=== PATIENT | male | born 1950 | race Caucasian/White ===

== ENCOUNTER 2017-10-04 16:24 | Emergency (ER) | END 2017-10-04 17:51 | disposition home or self-care (01) ==

== ENCOUNTER 2018-03-13 18:53 | Emergency (ER) | payer OTHER ==
[~2018-03-13] VITALS: Ht 170.2 cm; Wt 86.5 kg
[~2018-03-13 18:53] MED LIST: ATOR20TA38 PO; GLIP10TA14 PO; LOSA25TA12 PO; METF100010 PO; WARF5TAB PO
[2018-03-13 19:00] VITALS: Ht 170.2 cm; Wt 86.5 kg
[2018-03-13] MEDS ORDERED: CEPH-443 PO (20:22)
--- NOTE | 2018-03-13 21:01 | ERD ---
ER Documentation Chief Complaint Chief Complaint ABSCESS LEFT ELBOW HPI 67-year-old male patient with a past medical history of hypertension, diabetes, hyperlipidemia, hypertension chronic right leg DVT presents to the ED complaining of left elbow pain that started about a days ago. Patient reports that he is on his elbows, did not sustain any trauma or injuries. States that his left abscess started to drain. Denies any fever, chills, loss of sensation, loss of range of motion, nausea, vomiting. Reports that he still has good range of motion of his left elbow however it is slightly painful. ROS All systems reviewed and are negative except as per history of present illness. Medications Home Meds Active Scripts Cephalexin* (Keflex*) 500 Mg Capsule, 500 MG PO QID for 7 Days, CAP Prov:CHIN SHIN PA-C 03/13/18 Warfarin Sodium* (Coumadin*) 5 Mg Tablet, 1.5 TAB PO DAILY for 30 Days, TAB Prov:AURORA QUACH MD 10/04/17 Reported Medications Glipizide* (Glipizide*) 10 Mg Tablet, 10 MG PO AC BREAKFAST DINNER, TAB 10/04/17 Metformin Hcl* (Metformin Hcl*) 1,000 Mg Tablet, 1000 MG PO WITH BREAKFAST DINNE, #60 TAB 10/04/17 Atorvastatin Calcium* (Atorvastatin Calcium*) 20 Mg Tablet, 20 MG PO QHS, #30 TAB 10/04/17 Losartan Potassium* (Losartan Potassium*) 25 Mg Tablet, 25 MG PO DAILY, TAB 10/04/17 Allergies Allergies: Coded Allergies: No Known Allergy (Unverified , 10/04/17) PMhx/Soc History of Surgery: No Anesthesia Reaction: No Hx Neurological Disorder: No Hx Respiratory Disorders: No Hx Cardiac Disorders: No Hx Psychiatric Problems: No Hx Miscellaneous Medical Probl: Yes (DVT,DM,Dyslipidemia) Hx Alcohol Use: No Hx Substance Use: No Hx Tobacco Use: No Smoking Status: Never smoker FmHx Family History: No diabetes, No coronary disease Physical Exam Vitals Vital Signs Date Temp Pulse Resp B/P (MAP) Pulse Ox O2 O2 Flow FiO2 Time Delivery Rate 03/13/18 98.2 84 18 150/83 98 19:00 (105) Physical Exam Const: [id number], well-nourished. In no acute distress. Head: Atraumatic, normocephalic Eyes: Normal Conjunctiva without injection ENT: Normal external ear, nose and mouth. Neck: Full range of motion. No meningismus. Resp: Clear to auscultation bilaterally. No wheezing, rhonchi, rales, or crackles. No accessory muscle use. No retractions. Cardio: Regular rate and rhythm, no murmurs Skin: No petechiae or rashes Back: No midline tenderness. No CVA tenderness. Ext: No cyanosis, or edema. Cap refill less than 2 seconds. Distal pulses intact bilaterally. 2 cm superficial abscess noted of the left olecranon. Full range of motion of the the bilateral elbows with flexion, extension, supination and pronation. Neur: Awake and alert. Normal gait and coordination. Muscle strength 5/5. Sensation intact bilaterally. Psych: Normal Mood and Affect Procedures/MDM 67-year-old male patient with left elbow abscess. His blood pressure 150/83. Blood Pressure Assessment: Patient's blood pressure was elevated (>120/80) but appears stable without evidence of hypertension emergency or urgency. The patient was counseled about the risks of hypertension and urged to pursue outpatient monitoring and therapy within a week with their primary care physician. His left elbow abscess is spontaneously draining. There is no indication for incision and drainage. More purulent discharge was expressed from the incision area and normal saline was used to clean the abscess. Patient was strictly instructed to return to the ED in 2 days for wound check. Supervising physician, Dr. Garza also evaluated patient at this time and patient can be managed on outpatient basis. Low suspicion for septic arthritis, deep space abscess, osteomyelitis, cellulitis, MRSA, or other emergent conditions. Keflex was prescribed to patient. Instructed patient to return to the ED sooner for any worsening symptoms. Patient's questions were answered. Patient understood and agreed with discharge plan. Diagnosis: Abscess Discharge medications: Keflex Follow up with primary care physician in 2 days. Wound check in 2 days. Instructed patient to return to the ED sooner for any worsening symptoms. Patient's questions were answered. Patient is hemodynamically stable. Patient understood and agreed with discharge plan. Patient discharged stable. Disclaimer: Inadvertent spelling and grammatical errors are likely due to EHR/dictation software use and do not reflect on the overall quality of patient care. Also, please note that the electronic time recorded on this note does not necessarily reflect the actual time of the patient encounter. Departure Diagnosis: Primary Impression: Abscess Condition: Stable Patient Instructions: Abscess, Antiobiotic Treatment Only [facility] Usted se lawton hecho un examen mdico de control que le indica que no est en ephraim condicin que requiera tratamiento urgente en el Departamento de Emergencia. Un estudio ms profundo y el tratamiento de niño condicin pueden esperar sin ningn riesgo hasta que usted sea atendida/o en el consultorio de niño mdico o ephraim clnica. Es responsabilidad suya arreglar ephraim luis carlos para el seguimiento del devi. MANEJO DE CONDICIONES NO URGENTES EN EL FUTURO 1) Si usted tiene un mdico de atencin primaria: Usted debera llamar a niño mdico de atencin primaria antes de venir al departamento de emergencia. Despus de las horas de consultorio, niño doctor o niño asociado/a est disponible por telfono. El mdico o enfermero de yaniv en el servicio telefnico puede asesorarle por costa medio para atender el problema, o devi contrario se puede programar ephraim luis carlos. 2) Si usted no tiene un mdico de atencin primaria: Llame al mdico o clnica de referencia que aparece abajo gomez las horas de consultorio para hacer ephraim luis carlos para que le vean. CLINICAS: [facility] [phone] [facility] [phone] [facility] [phone] [address] [place] [phone] [place] [id number] [phone] [place] [phone] [facility] () Cesar se lawton hecho un examen mdico de control que le indica que no est en ephraim condicin que requiera tratamiento urgente en el Departamento de Emergencia. Un estudio ms profundo y el tratamiento de niño condicin pueden esperar sin ningn riesgo hasta que usted sea atendida/o en el consultorio de niño mdico o ephraim clnica. Es responsabilidad suya arreglar ephraim luis carlos para el seguimiento del devi. MANEJO DE CONDICIONES NO URGENTES EN EL FUTURO 1) Si usted tiene un mdico de atencin primaria: Usted debera llamar a niño mdico de atencin primaria antes de venir al departamento de emergencia. Despus de las horas de consultorio, niño doctor o niño asociado/a est disponible por telfono. El mdico o enfermero de yaniv en el servicio telefnico puede asesorarle por costa medio para atender el problema, o devi contrario se puede programar ephraim luis carlos. 2) Si usted no tiene un mdico de atencin primaria: Llame al mdico o condado institucions de referencia que aparece abajo gomez las horas de consultorio para hacer ephraim luis carlos para que le vean. SI USTED NO PUEDE PAGAR PARA TODD UN MEDICO puede ir a: [facility] [phone] [place] [address] [facility] [address] [place] [address] [facility] [address] [place] [address] PARA ROGERIO [facility] [address] [place] [address] Additional Instructions: Llame al doctor MAANA y matthew ephraim LUIS CARLOS PARA DENTRO DE 2-3 CROWE.Dgale a la secr etaria que nosotros le instruimos hacer esta luis carlos.Avise o llame si niño condicin se empeora antes de la luis carlos. Regresa aqui si peor o no mejor. WOUND CHECK:CONSULTE A NIÑO MDICO EN 2 celis para todd NIÑO HERIDA. CHIN SHIN PA-C Mar 13, 2018 21:01
== END 2018-03-13 20:38 | disposition home or self-care (01) ==
LOC: FTE 18:53
DX: L02.414 Cutaneous abscess of left upper limb (principal); I10 Essential (primary) hypertension; E11.9 Type 2 diabetes mellitus without complications; Z79.01 Long term (current) use of anticoagulants; Z79.84 Long term (current) use of oral hypoglycemic drugs
CPT/HCPCS: 99283